=== PATIENT | male | born 1940 | race Hispanic/Latino ===

== ENCOUNTER 2019-05-05 09:21 | Outpatient (CLI) | payer MEDICARE ==
--- NOTE | 2019-05-05 10:17 | XRay Report ---
CHEST 2 VIEWS INDICATION: COPD. COMPARISON: None. FINDINGS: Support devices: None. Heart: Within normal limits. Pulmonary vasculature: Relatively large central pulmonary arteries but otherwise normal vasculature. Lungs/pleura: No acute air space or interstitial disease. No pneumothorax. Additional findings: Aortic tortuosity and elongation. Degenerative change in the spine. IMPRESSION: 1. No acute findings. Signer Name: Leandro Velazquez MD Signed: 05/05/2019 10:13 AM Workstation Name: [id number]
== END 2019-05-05 09:22 | disposition home or self-care (01) ==
LOC: XRAY 09:21
PROVIDERS: ATTEND Specialist
DX: J44.9 Chronic obstructive pulmonary disease, unspecified (principal); L12.0 Bullous pemphigoid
CPT/HCPCS: 71046

== ENCOUNTER 2019-05-28 09:11 | Outpatient (CLI) | payer MEDICARE ==
--- NOTE | 2019-05-28 11:15 | Cat Scan Report ---
CT CHEST, ABDOMEN, AND PELVIS WITHOUT CONTRAST INDICATION / CLINICAL INFORMATION: WEIGHT LOSS UNEXPLAINED/. TECHNIQUE: Axial CT images were obtained through the chest, abdomen, and pelvis without contrast. All CT scans a t this location are performed using CT dose reduction for ALARA by means of automated exposure contro l. COMPARISON: CT chest dated 09/23/12. No prior CT abdomen pelvis. FINDINGS: HEART: Heart is normal size. Mild coronary artery calcification. THORACIC AORTA: Mild atherosclerotic calcification without acute abnormality. MEDIASTINUM and HELADIO: No significant abnormality. LUNGS: No acute air space or interstitial disease. No pulmonary nodule or mass. PLEURA: No significant pleural effusion. No pneumothorax. ADDITIONAL CHEST FINDINGS: None. LIVER: No significant abnormality. GALLBLADDER: No significant abnormality. BILE DUCTS: No significant abnormality. PANCREAS: No significant abnormality. SPLEEN: No significant abnormality. ADRENALS: No significant abnormality. RIGHT KIDNEY and URETER: Several simple cysts.. Tiny nonobstructing intrarenal stones. No ureteral st one or hydronephrosis. LEFT KIDNEY and URETER: Small hyperdense cyst on the posterior mid kidney has increased in size since the prior study. Tiny nonobstructing intrarenal stones. No ureteral stone or hydronephrosis. STOMACH and SMALL BOWEL: No significant abnormality. COLON: Mild sigmoid diverticulosis without acute inflammation. APPENDIX: No significant abnormality. PERITONEUM: No free fluid. No free air. No fluid collection. LYMPH NODES: No significant adenopathy. AORTA and ARTERIES: Mild atherosclerotic calcification without acute abnormality. IVC and VEINS: No significant abnormality. URINARY BLADDER: No significant abnormality. REPRODUCTIVE ORGANS: Prostate is mildly enlarged. ADDITIONAL FINDINGS: None. SKELETAL SYSTEM: No significant abnormality. IMPRESSION: 1. No acute process in the chest, abdomen, or pelvis. 2. Bilateral nephrolithiasis but no ureteral stone or hydronephrosis. 3. Mild sigmoid diverticulosis without inflammation. Signer Name: Hank Sofia MD Signed: 05/28/2019 11:10 AM Workstation Name: [id number]
--- NOTE | 2019-05-31 11:10 | Mammography Report ---
BONE DEXA. History: Postmenopausal and history of prednisone use. Procedure: 3 site bone densitometry performed on a Hologic scanner. Comparison: None Findings: The BMD of the lumbar spine is 0.879 gm/cm2 with a T-score of -1.9 and a Z-score of -0.8 . The bone mineral density (BMD) of the left femoral neck is 0.637 gm/cm2 with a T-score of -2.2 and a Z-score of -0.7. The BMD of the total left hip is 0.818 gm/cm2 with a T-score of -1.4 and a Z-score of -0.5. IMPRESSION: WHO Classification: Osteopenia with increased fracture risk based on both lumbar spine and left hip m easurements. The FRAX 10 year fracture probability for a major osteoporotic fracture is 8.2%. The FRAX 10 year fracture probability for hip fracture is 3.3% Pharmacological treatment, if not already prescribed should be started. A followup bone density test is recommended in one year to monitor response to therapy. Note:FRAX version 3.01. Fracture probability calculated for an untreated patient. Fracture probabilit y may be lower if the patient has received treatment. RECOMMENDATION: Clinical correlation and routine screening. Definitions: BMD = Bone Mineral Density T score = BMD related to mean peak bone mass of young adult ([place] expressed an standard deviation) Z score = Age-matched BMD expressed in SD World health organization (WHO) diagnostic criteria: Normal: T score greater than -1 SD. Osteopenia: T score between - SD and -2.4 SD. Osteoporosis: T score -2.5 SD or below Note: BMD is not the only risk factor for fracture; also consider factors such as the patient's age, risk of falling, previous osteoporotic fracture, family history of osteoporotic fractures, smoking st atus and low body weight. All treatment decisions require clinical judgment and consideration of individual patient factors inc luding patient preferences, comorbidities, previous drug use and risk factors not captured in the FRA X model (e.g. Frailty, falls, vitamin D deficiency, increased bone turnover, interval significant dec line in BMD). A more detailed DEXA Bone Densitometry report is available upon request. Signer Name: Leandro Velazquez MD Signed: 05/31/2019 11:05 AM Workstation Name: [id number]
== END 2019-05-28 09:12 | disposition home or self-care (01) ==
LOC: MAMMO 09:11
PROVIDERS: ATTEND Family Medicine
DX: K57.90 Diverticulosis of intestine, part unspecified, without perforation or abscess without bleeding (principal); N20.0 Calculus of kidney; I70.0 Atherosclerosis of aorta
CPT/HCPCS: 71250; 74176; 77080